=== PATIENT | male | born 1985 | race Caucasian/White ===

== ENCOUNTER 2018-10-26 09:32 | Inpatient (IN) | payer MEDICAID ==
[~2018-10-26] VITALS: Ht 180.3 cm; Wt 70.3 kg
[2018-10-26 10:39] VITALS: BP 123/76
[2018-10-26] MEDS ORDERED: OLANZapine 5 MG RAPDIS TABLET PO PRN (10:45)
[2018-10-26] MEDS ORDERED: ZOLPIDEM TARTRATE 10 MG TABLET PO PRN (10:45)
[2018-10-26] MEDS ORDERED: LORazepam 2 MG TABLET PO PRN (10:45)
[2018-10-26] MEDS ORDERED: OLANZapine 5 MG TABLET PO PRN (11:00)
[2018-10-26] MEDS ORDERED: MAGNESIUM HYDROXIDE SUSPENSION 30 ML UDCUP PO PRN (14:15)
[2018-10-26] MEDS ORDERED: PROMETHAZINE HCL 25 MG TABLET PO PRN (14:15)
[2018-10-26] MEDS ORDERED: GuaiFENesin/D-METHORPHAN [SUGAR-FREE] 200-20MG/10 ML SYRUP UDCUP PO PRN (14:15)
[2018-10-26] MEDS ORDERED: TUBERCULIN, PURIFIED PROTEIN DERIVATIVE 5 TU/0.1 ML SYRINGE ID ONE (14:15)
[2018-10-26] MEDS ORDERED: ACETAMINOPHEN 325 MG TABLET PO PRN (14:15)
[2018-10-26] MEDS ORDERED: HydrOXYzine PAMOATE 50 MG CAPSULE PO PRN (14:15)
[2018-10-26] MEDS ORDERED: MAG HYDROX/AL HYDROX/SIMETH ES 30 ML SUSPENSION UDCUP PO PRN (14:15)
[2018-10-26] MEDS ORDERED: LOPERAMIDE HCL 2 MG CAPSULE PO PRN (14:15)
[2018-10-26] MEDS: THIAMINE HCL 100 MG TABLET PO SCH (17:00)
[2018-10-26 19:54] VITALS: BP 135/77
[2018-10-26] MEDS ORDERED: OLANZapine 5 MG RAPDIS TABLET PO SCH (21:00)
[2018-10-27 07:20] VITALS: BP 136/70
[2018-10-27] MEDS: FOLIC ACID 1 MG TABLET PO SCH (08:25)
[2018-10-27] MEDS: NALTREXONE HCL 50 MG TABLET PO SCH (08:25)
[2018-10-27] MEDS: MULTIVITAMINS WITH MINERALS, THERAPEUTIC TABLET PO SCH (08:25)
[2018-10-27] MEDS: THIAMINE HCL 100 MG TABLET PO SCH ×2 (08:25→16:15)
[2018-10-27 08:37] LABS: BASOPHILS % (AUTO) 0.8 % (0.0-2.0); EOSINOPHILS % (AUTO) 2.3 % (1.0-6.0); HEMATOCRIT 45.5 % (41-53); HEMOGLOBIN 14.8 g/dL (13.5-17.5); LYMPHOCYTES # (AUTO) 2.1 K/uL (1.0-4.8); LYMPHOCYTES % (AUTO) 33.1 % (22.0-44.0); MEAN CORPUSCULAR HEMOGLOBIN 29.9 pg (26.0-34.0); MEAN CORPUSCULAR HGB CONC 32.6 G/dL (31.0-37.0); MEAN CORPUSCULAR VOLUME 92 fL (80-100); MONOCYTES # (AUTO) 0.4 K/uL (0.1-1.0); MONOCYTES % (AUTO) 6.3 % (2.0-9.0); NEUTROPHILS # (AUTO) 3.6 K/uL (1.8-7.7); NEUTROPHILS % (AUTO) 57.5 % (40.0-70.0); PLATELET COUNT (AUTO) 292 K/uL (150-450); RED BLOOD CELL COUNT(AUTO) 4.96 MIL/uL (4.50-5.90); RED CELL DISTRIBUTION WIDTH 13.3 % (11.5-14.5)
[2018-10-27 08:53] VITALS: BP 130/72
[2018-10-27 09:16] LABS: HEMOGLOBIN A1C 5.6 % (4.5-6.2)
[2018-10-27 09:19] LABS: ALANINE AMINOTRANSFERASE 23 U/L (12-78); ALBUMIN 3.3 g/dL (3.4-5.0); ALKALINE PHOSPHATASE 61 U/L (46-116); ANION GAP 5 mmol/L (8-16); ASPARTATE AMINOTRANSFERASE 18 U/L (15-37); BILIRUBIN,TOTAL 0.5 mg/dL (0.1-1.0); CALCIUM, TOTAL 8.7 mg/dL (8.8-10.5); CARBON DIOXIDE 28 mmol/L (22-29); CHLORIDE 104 mmol/L (98-107); CHOL/HDL RATIO 3.1 (4.2-7.3); CHOLESTEROL 148 mg/dL (131-200); CREATININE 0.62 mg/dL (0.60-1.30); FREE T4 (FREE THYROXINE) 0.72 ng/dL (0.76-1.46); GLOMERULAR FILTR. RATE CALC > 60 mL/min (>60); GLUCOSE,RANDOM 86 mg/dL (70-110); HDL CHOLESTEROL 47 mg/dL (40-60); LDL CHOL (CALC.) 92 mg/dL (0-130); SODIUM SERUM 137 mmol/L (136-145); THYROID STIMULATING HORMONE 0.46 uIU/mL (0.36-3.74); TOTAL PROTEIN, SERUM 6.6 g/dL (6.4-8.2); TRIGLYCERIDES 44 mg/dL (15-150); UREA NITROGEN, BLOOD 12 mg/dL (7-18)
[2018-10-27 16:00] VITALS: BP 110/65
[2018-10-27] MEDS: DIVALPROEX SODIUM 250 MG ER TABLET PO SCH (20:39)
[2018-10-27] MEDS: OLANZapine 10 MG RAPDIS TABLET PO SCH (20:39)
[2018-10-28] MEDS: THIAMINE HCL 100 MG TABLET PO SCH ×2 (08:40→17:00)
[2018-10-28] MEDS: FOLIC ACID 1 MG TABLET PO SCH (08:40)
[2018-10-28] MEDS: NALTREXONE HCL 50 MG TABLET PO SCH (08:40)
[2018-10-28] MEDS: MULTIVITAMINS WITH MINERALS, THERAPEUTIC TABLET PO SCH (08:40)
[2018-10-28 09:40] VITALS: BP 113/62
[2018-10-28] MEDS ORDERED: LORazepam 2 MG/ML VIAL ONE (13:48)
[2018-10-28] MEDS ORDERED: HALOPERIDOL LACTATE 5 MG/ML VIAL ONE (13:48)
[2018-10-28] MEDS ORDERED: DiphenhydrAMINE HCL 50 MG/ML VIAL ONE (13:49)
[2018-10-28] MEDS ORDERED: LORazepam 2 MG/ML VIAL IM ONE (14:00)
[2018-10-28] MEDS ORDERED: HALOPERIDOL LACTATE 5 MG/ML VIAL IM ONE (14:00)
[2018-10-28] MEDS ORDERED: DiphenhydrAMINE HCL 50 MG/ML VIAL IM ONE (14:00)
[2018-10-28] MEDS: OLANZapine 10 MG RAPDIS TABLET PO SCH (21:00)
[2018-10-28] MEDS: DIVALPROEX SODIUM 250 MG ER TABLET PO SCH (21:00)
[2018-10-29 01:13] VITALS: BP 118/72
[2018-10-29] MEDS: NALTREXONE HCL 50 MG TABLET PO SCH (08:52)
[2018-10-29] MEDS: MULTIVITAMINS WITH MINERALS, THERAPEUTIC TABLET PO SCH (08:52)
[2018-10-29] MEDS: THIAMINE HCL 100 MG TABLET PO SCH ×2 (08:52→17:00)
[2018-10-29] MEDS: FOLIC ACID 1 MG TABLET PO SCH (08:52)
[2018-10-29 16:30] VITALS: BP 114/64
[2018-10-29] MEDS: DIVALPROEX SODIUM 250 MG ER TABLET PO SCH (21:00)
[2018-10-29] MEDS: OLANZapine 10 MG RAPDIS TABLET PO SCH (21:00)
[2018-10-30 06:43] VITALS: BP 118/78
[2018-10-30 08:40] VITALS: BP 126/61
[2018-10-30] MEDS: MULTIVITAMINS WITH MINERALS, THERAPEUTIC TABLET PO SCH (08:56)
[2018-10-30] MEDS: NALTREXONE HCL 50 MG TABLET PO SCH (08:56)
[2018-10-30] MEDS: FOLIC ACID 1 MG TABLET PO SCH (08:56)
[2018-10-30] MEDS: THIAMINE HCL 100 MG TABLET PO SCH (08:57)
[2018-10-30] MEDS ORDERED: NALT50TA PO (10:35)
[2018-10-30] MEDS ORDERED: NALT50TA6 PO (10:41)
== END 2018-10-30 12:25 | disposition home or self-care (01) | DRG 751 ==
LOC: B3A 10:49
PROVIDERS: ADMIT Psychiatry & Neurology Psychiatry; ATTEND Psychiatry & Neurology Psychiatry
DX: F29 Unspecified psychosis not due to a substance or known physiological condition (principal); Z91.14 Patient's other noncompliance with medication regimen; F15.90 Other stimulant use, unspecified, uncomplicated; F17.200 Nicotine dependence, unspecified, uncomplicated; F60.0 Paranoid personality disorder; Z65.3 Problems related to other legal circumstances
CPT/HCPCS: 83036; 84439; 84443; 86592; J1200; J1630; J2060

== ENCOUNTER 2019-12-22 23:00 | Emergency (ER) | payer MEDICAID, OTHER ==
[~2019-12-22] VITALS: Ht 182.9 cm; Wt 68.2 kg
[~2019-12-22 23:00] MED LIST: NALT50TA PO; NALT50TA6 PO
[2019-12-23 00:33] VITALS: BP 139/82
== END 2019-12-23 01:16 | disposition left against medical advice (07) ==
LOC: EMS 23:02
DX: F41.9 Anxiety disorder, unspecified (principal); F17.210 Nicotine dependence, cigarettes, uncomplicated; F11.90 Opioid use, unspecified, uncomplicated; F31.9 Bipolar disorder, unspecified
CPT/HCPCS: 93005